=== PATIENT | female | born 1985 | race Caucasian/White ===

== ENCOUNTER 2020-03-27 17:02 | Emergency (ER) | payer MEDICAID ==
[~2020-03-27] VITALS: Ht 162.6 cm; Wt 78.5 kg
[2020-03-27 17:15] VITALS: BP 117/88
[2020-03-27 18:06] LABS: BACTERIA,URINE 0 /HPF (0-FEW); BILIRUBIN,URINE NEG (NEG); CLARITY,URINE CLEAR; COLOR,URINE YELLOW; GLUCOSE,URINE NEG (NEG); NITRITE,URINE NEG (NEG); RBC,URINE OCC /HPF (0-2); SQUAMOUS EPITHELIAL CELL,UR FEW /LPF; UROBILINOGEN,URINE 0.2 mg/dL (0.2 mg/dL)
--- NOTE | 2020-03-27 18:39 | PHYS DOC ---
General Adult EDM: Chief Complaint: groin pain HPI: HPI: 34-year-old female presents with left inguinal pain. The patient's discomfort started about 3 weeks ago after having "rough sex". The patient is 33 weeks . This is her fourth . She denies any cramping, bleeding, discharge, or other problems with the . She has had this left inguinal fullness and cramping sensation for the last 3 weeks. It initially started when she had most of her partner's weight on his hands pressing in this area. Since then she has felt like there is a fullness in her left inguinal area down to the labia. It is worse with standing and being on her feet all day. She has a job where she stands up all day. [facility] and it has been painful. She wants to figure out what is going on. She denies any related concerns. Review of Systems: Review of Systems: Constitutional: Denies fever or chills Eyes: Denies change in visual acuity HENT: Denies nasal congestion or sore throat Respiratory: Denies cough or shortness of breath Cardiovascular: Denies chest pain or edema GI: Denies abdominal pain, nausea, vomiting, bloody stools or diarrhea : Denies dysuria Musculoskeletal: Left inguinal pain Integument: Denies rash Neurologic: Denies headache, focal weakness or sensory changes Endocrine: Denies polyuria or polydipsia Lymphatic: Denies swollen glands Psychiatric: Denies depression or anxiety Heart Score: Risk Factors: Risk Factors: DM, Current or recent (<one month) smoker, HTN, HLP, family history of CAD, obesity. Risk Scores: Score 0 - 3: 2.5% MACE over next 6 weeks - Discharge Home Score 4 - 6: 20.3% MACE over next 6 weeks - Admit for Clinical Observation Score 7 - 10: 72.7% MACE over next 6 weeks - Early Invasive Strategies Physical Exam: PE: Constitutional: Well developed, well nourished, no acute distress, non-toxic appearance. [] HENT: Normocephalic, atraumatic, bilateral external ears normal, oropharynx moist, no oral exudates, nose normal. [] Eyes: PERRLA, EOMI, conjunctiva normal, no discharge. [] Neck: Normal range of motion, no tenderness, supple, no stridor. [] Cardiovascular:Heart rate regular rhythm, no murmur [] Lungs & Thorax: Bilateral breath sounds clear to auscultation [] Abdomen: Shaved pubic hair, normal external exam of the external labia. Mild fullness of the left inguinal area with standing. Tenderness near the left inguinal canal. [] Skin: Warm, dry, no erythema, no rash. [] Back: No tenderness, no CVA tenderness. [] Extremities: No tenderness, no cyanosis, no clubbing, ROM intact, no edema. [] Neurologic: Alert and oriented X 3, normal motor function, normal sensory function, no focal deficits noted. [] Psychologic: Affect normal, judgement normal, mood normal. [] Current Patient Data: Labs: Laboratory Tests Test 03/27/20 17:44 Urine Collection Type Unknown Urine Color Yellow Urine Clarity Clear Urine pH 7.0 Urine Specific Divide 1.020 Urine Protein Neg (NEG-TRACE) Urine Glucose (UA) Neg mg/dL (NEG) Urine Ketones (Stick) Neg mg/dL (NEG) Urine Blood Neg (NEG) Urine Nitrite Neg (NEG) Urine Bilirubin Neg (NEG) Urine Urobilinogen Dipstick 0.2 mg/dL (0.2 mg/dL) Urine Leukocyte Esterase Neg (NEG) Urine RBC Occ /HPF (0-2) Urine WBC 1-4 /HPF (0-4) Urine Squamous Epithelial Cells Few /LPF Urine Bacteria 0 /HPF (0-FEW) Urine Mucus Slight /LPF EKG: EKG: [] Radiology/Procedures: Radiology/Procedures: [] Impressions: PELVIS LIMITED OR FOLLOW UP 03/27/2020 6:33 PM INDICATION: Left inguinal fullness for 3 weeks. 33 weeks . COMPARISON: None available TECHNIQUE: Sonographic evaluation of the left groin was performed utilizing grayscale and color Doppler. FINDINGS/ IMPRESSION: Left inguinal lymph nodes are nonenlarged with normal fatty hilum and reniform morphology. No suspicious findings identified within the left groin. No labial or soft tissue mass. No cystic or solid mass. No abscess is identified. Electronically signed by: Madina Choi MD (03/27/2020 7:40 PM) [facility] DICTATED AND SIGNED BY: MADINA CHOI MD DATE: 03/27/201939 CC: KENTON JAVIER DO; ZOILA OLVERA MD ~ Course & Med Decision Making: Course & Med Decision Making Pertinent Labs and Imaging studies reviewed. (See chart for details) Physical exam performed in the presence of nurse Katie. The patient's urinalysis is negative for infection. Her groin ultrasound does not show any significant findings. Her discomfort is likely due to musculoskeletal strain or this could be round ligament stretching that is manifesting itself in that area. She is stable for discharge at this time. [] Dragon Disclaimer: Dragon Disclaimer: This electronic medical record was generated, in whole or in part, using a voice recognition dictation system. Departure Departure: Impression: Primary Impression: Left groin pain Disposition: HOME/RESIDENCE PRIOR TO ADM Condition: STABLE Referrals: ZOILA OLVERA MD (PCP) Patient Instructions: Groin Strain Justification of Admission: Justification of Admission: Justification of Admission Dx: N/A KENTON JAVIER DO Mar 27, 2020 18:39
--- NOTE | 2020-03-27 19:44 | RAD ---
PELVIS LIMITED OR FOLLOW UP 03/27/2020 6:33 PM INDICATION: Left inguinal fullness for 3 weeks. 33 weeks . COMPARISON: None available TECHNIQUE: Sonographic evaluation of the left groin was performed utilizing grayscale and color Doppler. FINDINGS/ IMPRESSION: Left inguinal lymph nodes are nonenlarged with normal fatty hilum and reniform morphology. No suspicious findings identified within the left groin. No labial or soft tissue mass. No cystic or solid mass. No abscess is identified. Electronically signed by: Caren Choi MD (03/27/2020 7:40 PM) [facility]
== END 2020-03-27 20:15 | disposition home or self-care (01) ==
LOC: ER 17:02
DX: O26.893 Other specified pregnancy related conditions, third trimester (principal); R10.32 Left lower quadrant pain; Z3A.33 33 weeks gestation of pregnancy
CPT/HCPCS: 76857; 81001; 99284

== ENCOUNTER 2021-07-31 19:43 | Emergency (ER) | payer MEDICAID ==
[~2021-07-31] VITALS: Ht 162.6 cm; Wt 73.7 kg
[2021-07-31 19:57] VITALS: BP 110/57
[2021-07-31] MEDS ORDERED: KETOROLAC 60 MG/2 ML VIAL. IM ONE ×2 (20:08→20:15)
--- NOTE | 2021-07-31 20:27 | PHYS DOC ---
Past History Past Medical History: Anemia Additional Past Medical Histor: ADD (DAY VENTURA) Past Surgical History: No Surgical History (DAY VENTURA) Alcohol Use: None (DAY VENTURA) General Adult EDM: Chief Complaint: ANKLE PROBLEM HPI: HPI: Patient is a 35 year old female who presents with left ankle pain. Patient states that her pain is moderate, though she cannot ambulate without pain. Yesterday, she took her children to an indoor trampoline park. She landed on her left ankle "wrong," and heard a loud pop with grinding. When she plantar flexes her foot, the grinding is reproducible. She reports associated paresthesias over the top of her foot. Patient was able to ambulate with pain directly after injury, she required the help of one of her children. Patient has never injured the ankle before. She took 200 mg ibuprofen yesterday. (DAY VENTURA) Review of Systems: Review of Systems: ROS negative except as mentioned in HPI. (DAY VENTURA) Current Medications: Current Meds: Current Medications Medications (Trade) Dose Ordered Sig/Karl Start Time Stop Time Status Last Admin Dose Admin Ketorolac Tromethamine (Toradol Im) 60 mg STK-MED ONCE 07/31/21 20:08 07/31/21 20:09 DC (DAY VENTURA) Allergies: Allergies: Allergies Coded Allergies Type Severity Reaction Last Updated Verified No Known Drug Allergies 03/27/20 No (DAY VENTURA) Physical Exam: PE: Constitutional: Well developed, well nourished, no acute distress, non-toxic appearance. Cardiovascular: Heart rate regular rhythm, no murmur. Lungs & Thorax: Bilateral breath sounds clear to auscultation. Skin: Warm, dry, no rash, no abrasion, no laceration. Extremities: Left ankle with obvious swelling and ecchymosis that has begun settling to the distal foot, swelling noted on the lateral aspect of high ankle with tenderness, active range of motion intact with pain, neurovascular intact. Extremities otherwise no tenderness, no cyanosis, no clubbing, ROM intact, no edema. (DAY VENTURA) Current Patient Data: Vital Signs: Vital Signs Date Time Temp Pulse Resp B/P (MAP) Pulse Ox O2 Delivery O2 Flow Rate FiO2 07/31/21 19:57 98.3 74 16 110/57 (74) 99 Room Air (DAY VENTURA) Radiology/Procedures: Radiology/Procedures: PROCEDURE: ANKLE LEFT 3V EXAMINATION: Left ankle radiograph. VIEWS: 3 COMPARISON: None INDICATION:35 years, Female, injury. FINDINGS: No acute fracture, dislocation or subluxation. Ankle mortise and talar dome are intact. Mild soft tissue swelling about the lateral malleolus. No ankle joint effusion. IMPRESSION: No acute osseous process. Electronically signed by: Abraham Monsivais MD (07/31/2021 9:46 PM) [facility] ([facility]) Heart Score: C/O Chest Pain: No (DAY VENTURA) Course & Med Decision Making: Course & Med Decision Making Pertinent Labs and Imaging studies reviewed. (See chart for details) X-rays obtained to evaluate for fracture or dislocation. Patient advised that she likely has soft tissue injury, which will need to be evaluated by ultrasound and/or MRI, as determined by graphic design specialist. No x-ray or dislocation seen on plain films. Patient will be placed in Jhonny bandage and stirrup splint. Patient instructed to use RICE therapy. She should follow-up with orthopedics sometime this week for further evaluation and management. She did take [id number] NSAIDs for pain control. Patient understands and is agreeable to discharge plan. (DAY VENTURA) Dragon Disclaimer: Dragon Disclaimer: This electronic medical record was generated, in whole or in part, using a voice recognition dictation system. (DAY VENTURA) Departure Departure: Impression: Primary Impression: High ankle sprain of left lower extremity Qualified Codes: S93.492A - Sprain of other ligament of left ankle, initial encounter Disposition: HOME / SELF CARE / HOMELESS Condition: STABLE Referrals: ZOILA OLVERA MD (PCP) Patient Instructions: Ankle Sprain, [id number], RICE - Routine Care for Injuries, [id number] Attending Signature Attending Signature I have participated in the care of this patient and I have reviewed and agree with all pertinent clinical information above including history, exam, and recommendations. (AKI MARCUS MD) Dragon Disclaimer This chart was dictated in whole or in part using Voice Recognition software in a busy, high-work load, and often noisy Emergency Department environment. It may contain unintended and wholly unrecognized errors or omissions. (AKI MARCUS MD) [facility] Jul 31, 2021 20:27 AKI MARCUS MD Aug 03, 2021 17:26
--- NOTE | 2021-07-31 21:48 | RAD ---
EXAMINATION: Left ankle radiograph. VIEWS: 3 COMPARISON: None INDICATION:35 years, Female, injury. FINDINGS: No acute fracture, dislocation or subluxation. Ankle mortise and talar dome are intact. Mild soft tis nena swelling about the lateral malleolus. No ankle joint effusion. IMPRESSION: No acute osseous process. Electronically signed by: Abraham Monsivais MD (07/31/2021 9:46 PM) [facility]
== END 2021-07-31 20:38 | disposition home or self-care (01) ==
LOC: ER 19:43
DX: S93.492A Sprain of other ligament of left ankle, initial encounter (principal); Z86.2 Personal history of diseases of the blood and blood-forming organs and certain disorders involving the immune mechanism; X50.9XXA Other and unspecified overexertion or strenuous movements or postures, initial encounter; Y93.44 Activity, trampolining; Y92.89 Other specified places as the place of occurrence of the external cause; Y99.8 Other external cause status
CPT/HCPCS: 29515; 73610; 96372; 99283; J1885

== ENCOUNTER → 2021-10-06 | Outpatient (CLI) | payer MEDICAID ==
--- NOTE | 2021-10-06 10:07 | RAD ---
INDICATION : Routine Screening. COMPARISON: None available TECHNIQUE: Standard mammogram screening views of the bilateral breasts were obtained with 3D tomosynt hesis. CAD was utilized. FINDINGS: The breasts are heterogenous density. No definite suspicious mass. IMPRESSION: BI-RADS Category 1: Negative. Recommend repeat screening examination as clinically indicated. The patient was placed into the recall system with a suggested recall date for follow up imaging. Mammography is the most sensitive method for finding small breast cancers, but it does not detect the m all and is not a substitute for careful clinical examination. A negative mammogram does not negate a clinically suspicious finding and should not result in delay in biopsying a clinically suspicious abnormality. Electronically signed by: Kaden Austin MD (10/06/2021 10:05 AM) [id number]
== END ==
LOC: MAMMO 08:05
PROVIDERS: ATTEND Family Medicine
DX: Z12.31 Encounter for screening mammogram for malignant neoplasm of breast (principal)
CPT/HCPCS: 77063; 77067